=== PATIENT | male | born 1970 | race African-American/Black ===

== ENCOUNTER 2016-12-29 23:49 | Emergency (ER) | payer MEDICAID ==
[2016-12-30] MEDS ORDERED: NORMAL SALINE 1,000 ML IV ONE (01:57)
[2016-12-30] MEDS ORDERED: ONDANSETRON HCL/PF 2 MG/ML VIAL IV ONE (01:57)
--- NOTE | 2016-12-30 01:59 | ERNOTE ---
Abdominal HPI - General Chief Complaint: Abdominal Pain Time Seen by Provider: 12/30/16 01:52 Source: patient, family Exam Limitations: no limitations - Immun/Allergies/Home Medications Immunizatons: IMMUNIZATION HX Immunizations Up to Date Yes History of Influenza Vaccine No Allergies/Adverse Reactions: Allergies No Known Allergies Allergy (Verified 08/12/16 07:52) Home Medications: HOME MEDICATIONS Ondansetron HCl [Zofran] 4 mg PO QID #10 tablet 12/30/16 [Last Taken Unknown] - History of Present Illness Narrative: Pt has had N/V/D x 5-6 days, he states that he seems to have similar episodes each year around this time. Timing: getting worse Quality: moderate Activities at Onset: none Modifying Factors - (Worsens): Present: eating Prior Abdominal Problems: Present: similar symptoms - each spring Review of Systems - Review of Systems Constitutional: Present: chills, weight loss EYE: Present: no symptoms reported ENT: Present: no symptoms reported Respiratory: Absent: shortness of breath Cardiology: Absent: chest pain Gastrointestinal/Abdominal: Present: See HPI, abdominal pain - cramping Genitourinary: Present: decreased urinary output. Absent: frequency, pain Musculoskeletal: Present: no symptoms reported Skin: Present: no symptoms reported Neurological: Present: no symptoms reported Endocrine: Present: no symptoms reported Hematologic/Lymphatic: Present: no symptoms reported Psych: Present: no symptoms reported - Patient's Past Medical History Patient History - Medical: Anxiety Patient History - Cardiac/Respiratory: No pertinent hx Patient History - Cancer: No Hx of Cancer Patient History - Surgical Procedures: No surgical history Patient History - Other: None - Social History Living Situations: other Psych History: Hx of Anxiety Have you smoked in the past 12 months: Yes Do you dip or chew tobacco: No Alcohol Use: rarely Drug Use: none - Immunizations Immunizations Up to Date: Yes History of Influenza Vaccine: No Physical Exam - Physical Exam General Appearance: Present: wd/wn, mild distress Neck: Present: normal inspection, nontender Respiratory: Present: no respiratory distress, normal breath sounds, lungs clear Cardiovascular/Chest: Present: regular rate, rhythm, no murmur Gastrointestinal/Abdominal: Present: tenderness - bilateral lower quads, abnormal bowel sounds - hypoactive. Absent: guarding, rebound Extremity Exam: Present: normal inspection Neurological Exam: Present: alert, oriented Skin Exam: Present: normal color, warm/dry ED Progress - Results and Orders Patient's Lab Results:: I have reviewed the patient's lab results. Results and Orders: Laboratory Tests 12/30/16 12/30/16 12/30/16 01:57 01:57 02:49 WBC 6.4 Hgb 15.1 Hct 43.6 Plt Count 215 Sodium 139 Potassium 3.9 Chloride 103 Carbon Dioxide 25.4 Anion Gap 14.5 H BUN 16 Creatinine 1.16 Est GFR (Non-Af Amer) 88 BUN/Creatinine Ratio 13.8 Random Glucose 97 Calcium 9.3 Total Bilirubin 0.2 AST 20 ALT 17 L Alkaline Phosphatase 68 Total Protein 7.2 Albumin 3.3 L Urine Color Yellow Urine Appearance Clear Urine pH 6.0 Ur Specific Weidman >=1.030 Urine Protein 30 H Urine Glucose (UA) Negative Urine Ketones Negative Urine Blood Negative Urine Nitrate Negative Urine Bilirubin Negative Prot Sulfosalicylic Acd 1+ Urine Urobilinogen Normal Ur Leukocyte Esterase Negative Urine RBC 0-5 Urine WBC 0-5 Ur Epithelial Cells 0-5 Amorphous Sediment Moderate - 2+ H Urine Bacteria None seen Urine Mucus Few - 1+ H Urine Culture Comments No culture indicated - Vital Signs Patient's Vital Signs:: I have reviewed the patient's vital signs. Vital Signs: Vital Signs 12/30/16 00:14 Temperature 37.1 C Pulse Rate 85 Respiratory 16 Rate Blood Pressure 149/91 O2 Sat by Pulse 97 Oximetry - X-Ray X-Ray #1 X-Ray: abdomen Interpretation: Interp. by me X-ray Comments: no evidence of mass or obstruction, non-specific gas pattern - Progress/Reassessment Chief Complaint: Abdominal Pain Departure - Departure Clinical Impression: Gastroenteritis Disposition: Home self-care Condition: Good Instructions: Nausea, Adult Referrals: Gopi Worthy DO [Primary Care Provider] - Prescriptions: Ondansetron HCl [Zofran] 4 mg PO QID #10 tablet
[2016-12-30] MEDS ORDERED: ONDANSETRON HCL/PF 2 MG/ML VIAL ONE (02:10)
[2016-12-30 02:11] LABS: Hematocrit 43.6 % (42.0-52.0); Hemoglobin 15.1 gm/dL (13.5-18.0); Mean Cell Volume 89.3 fl (78-100); Mean Corpuscular Hemoglobin 30.9 pg (27-31); Mean Corpuscular Hgb Conc 34.6 g/dl (32-36); Mean Platelet Volume 9.9 fl (6.0-9.5); Neutrophil # 2.2 K/mm3 (1.3-6.0); Neutrophil % 34.4 % (42-75.0); Platelet Count 215 K/mm3 (150-450); Red Blood Count 4.88 M/mm3 (4.7-6.0); Red Cell Distribution Width 13.3 % (11.5-14.0); White Blood Count 6.4 K/mm3 (4.0-10.5)
--- OUTSIDE RECORDS SUMMARY | 2016-12-30 02:13 | XMS REPORT | Continuity of Care Document ---
:1970 Author Organization [facility] [place] [address] Care Team Providers Name Role Phone Provider, None Per Patient Primary Care Provider Unavailable Source Comments This disclosure is being made pursuant to the [employer] program and may contain all information available regarding this patient.[facility] Active Allergies and Adverse Reactions No Known Allergies Current Medications Be aware that medications may not be up to date as of this document. Alwaysverify current medications with the patient. Prescription Sig. Disp. Refills Start Date End Date Status QUEtiapine Fumarate Take 200 mg by Active (SEROQUEL) 200 MG tablet mouth 2 (two) times daily. Active Problems Not on file Social History Tobacco Use Types Packs/Day Years Used Date Current Every Day Smoker Cigarettes 0.5 20 Smokeless Tobacco: Never Used Tobacco Cessation:Ready to Quit: No Comments: Alcohol Use Drinks/Week oz/Week Comments Yes moderately Last Filed Vital Signs Vital Sign Reading Time Taken Blood Pressure 120/77 06/26/2012 1:43 PM [facility] Pulse 109 06/26/2012 1:43 PM [facility] Temperature 36.9 C (98.5 F) 06/26/2012 1:43 PM [facility] Respiratory Rate 20 06/26/2012 1:43 PM [facility] Height 1.676 m (5' 6") 06/26/2012 1:43 PM [facility] Weight 64.4 kg (141 lb 15.6 oz) 06/26/2012 1:43 PM [facility] Body Mass Index 22.93 06/26/2012 1:43 PM [facility] Oxygen Saturation 99% 06/26/2012 1:43 PM [facility] Plan of Care Health Maintenance Due Date Last Done Comments Retired-Pertussis Vaccine Adult 10/19/1990 Retired-Tetanus Vaccine Adult 10/19/1990 Retired-INFLUENZA VACCINE 04/22/2015 Results from Last 3 Months Not on file
[2016-12-30 02:31] LABS: Albumin * 3.3 gm/dl (3.4-5.0); Anion Gap 14.5 mmol/L (6.8-13.8); BUN/Creatinine Ratio 13.8 (9.0-21.6); Bilirubin, Total 0.2 mg/dL (0.0-1.1); Ca. Corrected For Albumin 9.5 mg/dL (8.4-10.2); Calcium * 9.3 mg/dL (7.9-10.9); Carbon Dioxide 25.4 mmol/L (24-32.6); Potassium 3.9 mmol/L (3.4-4.6); Total Protein 7.2 gm/dL (6.2-8.2)
[2016-12-30 02:57] LABS: Urine Bilirubin Negative (NEGATIVE); Urine Blood Negative /ul (NEGATIVE); Urine Ketone Negative (NEGATIVE); Urine Nitrite Negative (NEGATIVE); Urine Protein 30 mg/dL (NEGATIVE); Urine Specific Gravity >=1.030 SP.GR. (1.005-1.030); Urine Urobilinogen Normal (NORMAL)
[2016-12-30 03:00] LABS: Urine Amorphous Sediment Moderate - 2+ (NONE-FEW); Urine Appearance Clear; Urine Bacteria None Seen; Urine Color Yellow; Urine Mucus Few - 1+; Urine RBC 0-5 /hpf (0-5); Urine WBC 0-5 /hpf (0-5)
[2016-12-30] MEDS ORDERED: ONDANSETRON 4 MG TAB.RAPDIS PO ONE (04:51)
[2016-12-30] MEDS ORDERED: ONDANSETRON 4 MG TAB.RAPDIS ONE (04:57)
[2016-12-30 05:09] VITALS: BP 131/86
== END 2016-12-30 05:07 | disposition home or self-care (01) ==
LOC: ER 23:49
DX: K52.9 Noninfective gastroenteritis and colitis, unspecified (principal)

== ENCOUNTER 2017-03-25 17:17 | Emergency (ER) | payer MEDICAID ==
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
--- OUTSIDE RECORDS SUMMARY | 2017-03-25 17:45 | XMS REPORT | Summary of Care ---
:1970 Author Organization [facility] Address [address] [place] [address] Care Team Providers Name Role Phone Gopi Worthy [place] Primary Care Physician Encounter Date(s): 12/15/16 - 12/15/16 [facility] Valerie Coreas, [address] [place], [place] [address] Discharge Disposition: 01 Discharged to Home or Self Care Attending Physician: EARL Cohen Vital Signs No data available for this section Problem List Condition Effective Dates Status Health Status Informant Depression(Confirmed) Active Prostatitis(Confirmed) Active Allergies, Adverse Reactions, Alerts No Known Allergies Medications Carafate 1 g oral tablet 1 tab(s), Oral, QID, # 120 tab(s), 0 Refill(s), Pharmacy: [place], [place] Start Date: 05/20/14 Stop Date: 11/17/16 Status: DiscontinuedCialis 5 mg oral tablet 1 tab(s), Oral, Daily, # 30 tab(s), 0 Refill(s), Start Date: 06/13/14 14:49:00 CDT, samples given to patient (Rx), [id number], 12/20/16 Start Date: 06/13/14 Stop Date: 11/17/16 Status: DiscontinuedCipro 500 mg oral tablet 1 tab(s), Oral, q12hr, # 42 tab(s), 0 Refill(s), Pharmacy: [place], [place] Start Date: 05/22/14 Stop Date: 06/13/14 Status: CompletedCipro 500 mg oral tablet 1 tab(s), Oral, q12hr interval, # 42 tab(s), 0 Refill(s), Start Date: 01/01/15 15:06:00 CDT, [place] Start Date: 01/01/15 Stop Date: 11/17/16 Status: DiscontinuedMedrol Dosepak 4 mg oral tablet 1 packet(s), Oral, Per Package Label, as directed on package labeling, # 21 tab( s), 0 Refill(s), Start Date: 11/17/16 8:59:00 CDT, [facility] [place] Special Instructions: as directed on package labeling Start Date: 11/17/16 Stop Date: 11/23/16 Status: OrderedMiraLax oral powder for reconstitution 17 gm=, Oral, Daily, # 12 EA, 0 Refill(s) Start Date: 04/29/14 Stop Date: 05/11/14 Status: CompletedPriLOSEC 20 mg oral delayed release capsule 1 cap(s), Oral, Daily, before a meal, # 30 cap(s), 0 Refill(s) Special Instructions: before a meal Start Date: 04/29/14 Stop Date: 11/17/16 Status: DiscontinuedSEROquel XR 800 mg, Oral, qPM, 0 Refill(s) Start Date: 05/17/14 Stop Date: 11/17/16 Status: DiscontinuedtraZODone 100 mg oral tablet 1 tab(s), Oral, HS, # 270 tab(s), 0 Refill(s) Start Date: 05/17/14 Stop Date: 11/17/16 Status: Discontinued Results No data available for this section Immunizations No data available for this section Procedures Procedure Date Related Diagnosis Body Site Esophagogastroduodenoscopy1 05/20/14 1auto-populated from documented surgical case Social History No data available for this section Assessment and Plan No data available for this section
--- OUTSIDE RECORDS SUMMARY | 2017-03-25 17:45 | XMS REPORT | Clinical Summary ---
:1970 Author Organization [facility] [place] [address] Care Team Providers Name Role Phone Unavailable Primary Care Provider Unavailable Source Comments This disclosure is being made pursuant to the [employer] program and maynot contain all information available regarding this patient.[facility] Allergies No Known Allergies Current Medications Be aware [...] Never Used Tobacco Cessation:Ready to Quit: No Alcohol Use Drinks/Week oz/Week Comments Yes moderately Sex Assigned at Date Recorded Not on file Last Filed Vital Signs Vital Sign Reading Time Taken Blood Pressure 120/77 06/26/2012 1:43 PM [facility] Pulse 109 06/26/2012 1:43 PM [facility] Temperature 36.9 C (98.5 F) 06/26/2012 1:43 PM [facility] Respiratory Rate 20 06/26/2012 1:43 PM [facility] Oxygen Saturation 99% 06/26/2012 1:43 PM [facility] Inhaled Oxygen Concentration - - Weight 64.4 kg (141 lb 15.6 oz) 06/26/2012 1:43 PM [facility] Height 167.6 cm (5' 6") 06/26/2012 1:43 PM [facility] Body Mass Index 22.92 06/26/2012 1:43 PM [facility] Plan of Treatment Health Maintenance Due Date Last Done Comments Retired-Pertussis Vaccine Adult 10/19/1990 Retired-Tetanus Vaccine Adult 10/19/1990 Retired-INFLUENZA VACCINE 04/22/2015 Results Not on filefrom Last 3 Months
--- OUTSIDE RECORDS SUMMARY | 2017-03-25 17:45 | XMS REPORT | Summary of Care ---
:1970 Author Organization [facility] Address [address] [place] [address] Care Team Providers Name Role Phone Gopi Worthy [place] Primary Care Physician Encounter Date(s): 11/17/16 - 11/17/16 [facility] Valerie Coreas, [address] [place], [place] [address] Discharge Disposition: 01 Discharged to Home or Self Care Attending Physician: EARL Cohen Referring Physician: EARL Cohen Vital Signs Most recent to oldest [Reference Range]: 1 Peripheral Pulse Rate [60-100 bpm] 82 bpm (11/17/16 8:38 AM) Blood Pressure [90-130/60-90 mmHg] 111/78mmHg (11/17/16 8:38 AM) Mean Arterial Pressure, Cuff 89 mmHg (11/17/16 8:38 AM) Most recent to oldest [Reference Range]: 1 Height/Length Measured 168 cm (11/17/16 8:38 AM) Weight Dosing 60.7 kg (11/17/16 8:38 AM) Weight Measured 60.7 kg (11/17/16 8:38 AM) BSA Measured 1.69 m2 (11/17/16 8:38 AM) Body Mass Index Measured 21.51 kg/m2 (11/17/16 8:38 AM) Problem List Condition Effective Dates Status Health Status Informant Depression(Confirmed) Active Prostatitis(Confirmed) Active Allergies, Adverse Reactions, Alerts No Known Allergies Medications Carafate 1 g oral tablet 1 tab(s), Oral, QID, # 120 tab(s), 0 Refill(s), Pharmacy: [place], [place] Start Date: 05/20/14 Stop Date: 11/17/16 Status: DiscontinuedCialis 5 mg oral tablet 1 tab(s), Oral, Daily, # 30 tab(s), 0 Refill(s), Start Date: 06/13/14 14:49:00 CDT, samples given to patient (Rx), [id number], 12/20/16 Start Date: 06/13/14 Stop Date: 11/17/16 Status: DiscontinuedCipro 500 mg oral tablet 1 tab(s), Oral, q12hr, # 42 tab(s), 0 Refill(s), Pharmacy: [place], [place] Start Date: 05/22/14 Stop Date: 06/13/14 Status: CompletedCipro 500 mg oral tablet 1 tab(s), Oral, q12hr interval, # 42 tab(s), 0 Refill(s), Start Date: 01/01/15 15:06:00 CDT, Pharmacy: [place], [place] Start Date: 01/01/15 Stop Date: 11/17/16 Status: DiscontinuedMedrol Dosepak 4 mg oral tablet 1 packet(s), Oral, Per Package Label, as directed on package labeling, # 21 tab( s), 0 Refill(s), Start Date: 11/17/16 8:59:00 CDT, Pharmacy: [place], [place] Special Instructions: as directed on package [...]
[2017-03-25] MEDS ORDERED: KETOROLAC TROMETHAMINE 60 MG/2 ML VIAL IM ONE (18:00)
[2017-03-25 18:19] VITALS: BP 138/90
== END 2017-03-25 18:00 | disposition home or self-care (01) ==
LOC: ER 17:17
DX: S13.4XXA Sprain of ligaments of cervical spine, initial encounter (principal); V49.40XA Driver injured in collision with unspecified motor vehicles in traffic accident, initial encounter; Y92.410 Unspecified street and highway as the place of occurrence of the external cause; Y93.9 Activity, unspecified; Y99.9 Unspecified external cause status; F41.9 Anxiety disorder, unspecified